=== PATIENT | male | born 1995 | race Caucasian/White ===

== ENCOUNTER 2019-12-30 21:55 | Emergency (ER) | payer MEDICAID ==
[~2019-12-30] VITALS: Ht 177.8 cm; Wt 77.1 kg
[2019-12-30] MEDS ORDERED: ONDANSETRON HCL/PF 4 MG/2 ML VIAL ONE (22:17)
[2019-12-30] MEDS ORDERED: HYDROMORPHONE 1 MG/1 ML DISP.SYRIN ONE (22:18)
[2019-12-30] MEDS ORDERED: IV NS 0.9% 1,000 ML BAG IV ONE (22:30)
[2019-12-30] MEDS ORDERED: KETOROLAC TROMETHAMINE INJ 30 MG/ML VIAL IV ONE (22:30)
[2019-12-30] MEDS ORDERED: ONDANSETRON HCL/PF 4 MG/2 ML VIAL IVP ONE (22:30)
[2019-12-30] MEDS ORDERED: HYDROMORPHONE 1 MG/1 ML DISP.SYRIN IV ONE (22:30)
--- NOTE | 2019-12-30 22:30 | NUR ---
BLOOD AND CULTURES DRAWN AND SENT TO LAB
[2019-12-30] MEDS ORDERED: KETOROLAC TROMETHAMINE INJ 30 MG/ML VIAL ONE (22:31)
[2019-12-30 22:32] LABS: BASOPHILS % (AUTO) 0.3 % (0.0-2.0); EOSINOPHILS % (AUTO) 0.1 % (0.0-6.0); HEMATOCRIT 36 % (39-51); HEMOGLOBIN 11.9 g/dL (13.5-17.5); LYMPHOCYTES # (AUTO) 1.9 /CMM (0.8-4.8); MEAN CORPUSCULAR HGB CONC 33 g/dl (31.0-36.0); MEAN CORPUSCULAR VOLUME 86 fL (80-96); MONOCYTES # (AUTO) 0.9 /CMM (0.1-1.30); MONOCYTES % (AUTO) 7.5 % (2.0-12.0); NEUTROPHILS # (AUTO) 9.6 /CMM (1.8-8.9); NEUTROPHILS % (AUTO) 77.1 % (43.0-81.0); PLATELET COUNT (AUTO) 352 /CMM (150-450); RED BLOOD CELL COUNT(AUTO) 4.16 MIL/uL (4.5-6.0); WHITE BLOOD COUNT (AUTO) 12.5 K/uL (4.3-11.0)
--- NOTE | 2019-12-30 22:36 | NUR ---
PATIENT CAME TO ER BED 11 C/O BACK PAIN. PATIENT STATES THAT SINCE 3 DAYS AGO HE HAS HAD "SERIOUS BACK PAIN". PATIENT DENIES HEAVY LIFTING OR STRENUOUS EXERCISE. PATIENT STATES THAT HE LAST USED WAS A FEW YEARS AGO OF IV DRUG USE. PT STATES HE TAKES SUBOXONE. AAOX4. NO SOB. BREATHING EVENLY AND UNLABORED ON ROOM AIR. CONNECTED TO MONITOR.
[2019-12-30 22:41] LABS: CALCIUM, SERUM 9.3 mg/dL (8.5-10.1); CARBON DIOXIDE 30 mmol/L (21-32); CHLORIDE 100 mmol/L (98-107); GLUCOSE 85 mg/dL (74-106); POTASSIUM 3.8 mmol/L (3.5-5.1); SODIUM SERUM 138 mmol/L (136-145); UREA NITROGEN, BLOOD 13 mg/dL (7-18)
[2019-12-30 22:46] LABS: ALANINE AMINOTRANSFERASE 22 U/L (12-78); ALBUMIN 3.5 g/dL (3.4-5.0); ALKALINE PHOSPHATASE 93 U/L (46-116); ASPARTATE AMINOTRANSFERASE 17 U/L (15-37); BILIRUBIN,DIRECT 0.1 mg/dL (0.0-0.2); BILIRUBIN,TOTAL 0.3 mg/dL (0.2-1.0); TOTAL PROTEIN, SERUM 8.2 g/dL (6.4-8.2)
[2019-12-30] MEDS ORDERED: CT SWABBABLE VALVE TRANS SET 1 EA INFUS.SET MC ONE (23:01)
[2019-12-30] MEDS ORDERED: IOHEXOL-300 100 ML VIAL IV ONE (23:01)
[2019-12-30] MEDS ORDERED: IV NS 0.9% 250 ML IV ONE (23:01)
--- NOTE | 2019-12-31 00:15 | NUR ---
IV removed. Catheter intact and site benign. Pressure and 4x4 applied to site. No bleeding noted. Patient discharged to home in stable condition. Written and verbal after care instructions given. Patient verbalizes understanding of instruction.
--- NOTE | 2019-12-31 00:15 | NUR ---
Patient given regarding prescriptions and given explainations regarding prescription information.
[2019-12-31 00:19] VITALS: BP 124/66
--- NOTE | 2019-12-31 00:30 | NUR ---
PICKED UP BY PATIENT'S FRIEND.
--- NOTE | 2019-12-31 04:10 | NUR ---
RETURNED DILAUDID 1MG AND ZOFRAN 4MG, CANCELLED BY ROMINA HEIN. WITNESSED RETURN WITH DOMINIK VELÁZQUEZ RN.
--- NOTE | 2019-12-31 04:10 | NUR ---
WITNESSED RASHAD ANGELES RN RETURNED DILAUDID 1MG AND ZOFRAN 4MG.
== END 2019-12-31 00:30 | disposition home or self-care (01) ==
LOC: ER 21:56
DX: M47.816 Spondylosis without myelopathy or radiculopathy, lumbar region (principal); M48.061 Spinal stenosis, lumbar region without neurogenic claudication; F11.11 Opioid abuse, in remission; F19.10 Other psychoactive substance abuse, uncomplicated
CPT/HCPCS: 36415; 71045; 72132; 80048; 80076; 83605; 84484; 85025; 85730; 87040 ×2; 93005; 96374; 99285; J1885; J7030; J7050; Q9967; J1170; J2405